=== PATIENT | female | born 1980 | race Two or more races ===

== ENCOUNTER 2018-11-16 14:15 | Emergency (ER) | payer SELFPAY ==
[~2018-11-16] VITALS: Ht 152.4 cm; Wt 81.6 kg
--- NOTE | 2018-11-16 15:42 | RAD ---
Examination: 3 views of the left second digit HISTORY: History of index finger injury COMPARISON: None available. Findings/ impression: There is mild comminuted displaced fracture of the distal aspect of the distal phalanx of the second digit. Soft tissue injury identified about the fracture site. Electronically signed by: Trevor Tellez MD (11/16/2018 3:39 PM) [id number]
[2018-11-16 16:13] VITALS: BP 132/76
[2018-11-16] MEDS ORDERED: DIPHTH,PERTUSS(ACELL),TET TOX 0.5 ML DISP.SYRIN. VAX IM ONE (16:45)
[2018-11-16] MEDS ORDERED: MORPHINE SULFATE 10 MG/ML VIAL. IV ONE (16:45)
[2018-11-16] MEDS ORDERED: cefTRIAXone IV Push 1 GM VIAL. IVP ONE (16:45)
--- NOTE | 2018-11-16 18:09 | PHYS DOC ---
Past Medical History Past Medical History: No Pertinent History Past Surgical History: Other Additional Past Surgical Histo: CYST REMOVED FROM OVARIES Alcohol Use: None Drug Use: None Adult General Chief Complaint Chief Complaint: LACERATION/AVULSION HPI HPI Patient is a 38 year old female who presents with left index and the laceration, patient states she works at [employer] and was closing the bathroom door and accidentally closed her left index finger in the door. She is right- handed. 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 Review of Systems Review of Systems Constitutional: Denies fever or chills [] Musculoskeletal: Reports left index finger laceration Integument: Denies rash or skin lesions [] Neurologic: Denies headache, focal weakness or sensory changes [] All other systems were reviewed and found to be within normal limits, except as documented in this note. Current Medications Current Medications Current Medications Medications (Trade) Dose Ordered Sig/Sumanth Start Time Stop Time Status Last Admin Dose Admin Ceftriaxone Sodium (Rocephin) 1 gm 1X ONCE 11/16/18 16:45 11/16/18 16:46 DC 11/16/18 17:54 1 GM Diphtheria/ Tetanus/Acell Pertussis (Boostrix) 0.5 ml ONCE ONCE 11/16/18 16:45 11/16/18 16:46 DC 11/16/18 17:49 0.5 ML Morphine Sulfate (Morphine Sulfate) 5 mg 1X ONCE 11/16/18 16:45 11/16/18 16:46 DC 11/16/18 17:42 5 MG Allergies Allergies Allergies Coded Allergies Type Severity Reaction Last Updated Verified No Known Drug Allergies 11/16/18 No Physical Exam Physical Exam Constitutional: Well developed, well nourished, no acute distress, non-toxic appearance. [] Skin:see extremity Back: No tenderness, no CVA tenderness. [] Extremities: Left index finger with a laceration on the dorsal and medial finger. Bleeding is well controlled. There is tenderness on palpation of the finger. Limited range of motion to the finger. Adequate radius sensation to the finger. +2 left radial pulse. Cap refill less than 2 seconds the left index finger. Neurologic: Alert and oriented X 3, normal motor function, normal sensory funct ion, no focal deficits noted. [] Psychologic: Affect normal, judgement normal, mood normal. [] Current Patient Data Vital Signs Vital Signs Date Time Temp Pulse Resp B/P (MAP) Pulse Ox O2 Delivery O2 Flow Rate FiO2 11/16/18 17:42 12 97 Room Air 11/16/18 16:13 97.8 64 132/76 (94) 97.8 EKG EKG [] Radiology/Procedures Radiology/Procedures []PROCEDURE: FINGER(S) LEFT Examination: 3 views of the left second digit HISTORY: History of index finger injury COMPARISON: None available. Findings/ impression: There is mild comminuted displaced fracture of the distal aspect of the distal phalanx of the second digit. Soft tissue injury identified about the fracture site. Electronically signed by: Trevor Tellez MD (11/16/2018 3:39 PM) [id number] DICTATED and SIGNED BY: TREVOR TELLEZ MD DATE: 11/16/18 1539 Course & Med Decision Making Course & Med Decision Making Pertinent Labs and Imaging studies reviewed. (See chart for details) This is a 38-year-old female presenting to the ED today with left index finger laceration from an injury, patient closed her left index finger in a door. Left index finger x-rays interpreted by radiologist were noted for-There is mild comminuted displaced fracture of the distal aspect of the distal phalanx of the second digit. Soft tissue injury identified about the fracture site. Patient was given Boostrix, Rocephin IV. Consulted with transfer line, accepting physician Dr. Mikhail Saul-patient will be transferred to by POV. Patterson Disclaimer Dragon Disclaimer This electronic medical record was generated, in whole or in part, using a voice recognition dictation system. Departure Departure Impression: Primary Impression: Fracture of phalanx of index finger Disposition: 05 TRANSFER OTHER Condition: STABLE Referrals: NO PCP (PCP) Additional Instructions: You have an open fracture to the left index finger. Please go to emergency room and you will be seen by Dr. Mikhail Sow. Problem Qualifiers Primary Impression: Fracture of phalanx of index finger Encounter type: initial encounter Fracture type: open Phalanx: distal Fracture alignment: displaced Laterality: left Qualified Codes: S62.631B - Displaced fracture of distal phalanx of left index finger, initial encounter for open fracture YOSHI MARTINES APRN Nov 16, 2018 18:09
== END 2018-11-16 18:20 | disposition home or self-care (01) ==
LOC: ER 14:15
DX: S62.631B Displaced fracture of distal phalanx of left index finger, initial encounter for open fracture (principal); W23.0XXA Caught, crushed, jammed, or pinched between moving objects, initial encounter; Y93.89 Activity, other specified; Y92.89 Other specified places as the place of occurrence of the external cause; Y99.8 Other external cause status
CPT/HCPCS: 73140; 90471; 90715; 96374; 96375; 99284; J0696; J2270